=== PATIENT | female | born 1945 | race African-American/Black ===

== ENCOUNTER → 2016-12-31 | Outpatient (CLI) | payer BC ==
[2015-03-19 10:31] VITALS: BP 110/74
[~2016-12-31] MED LIST: ATOR10TA60 PO; HYDR12.58 PO; LEVO750T5 PO
--- NOTE | 2016-12-31 16:04 | RAD ---
DATE: 12/31/2016 EXAM: DIGITAL SCREEN BILAT W/CAD HISTORY: Screening COMPARISON: April 12, 2014 This study was interpreted with the benefit of Computerized Aided Detection (CAD). FINDINGS: Breast Density: SCATTERED The breast parenchyma shows scattered fibroglandular densities. Breast parenchyma level B. There has not been significant change in the appearance of the breasts compared to the previous exam IMPRESSION: Benign findings BI-RADS CATEGORY: 2 BENIGN FINDING(S) RECOMMENDED FOLLOW-UP: 12M 12 MONTH FOLLOW-UP PQRS compliance statement: Patient information was entered into a reminder system with a target due date 12/31/2017 for the next mammogram. Mammography is a sensitive method for finding small breast cancers, but it does not detect them all and is not a substitute for careful clinical examination. A negative mammogram does not negate a clinically suspicious finding and should not result in delay in biopsying a clinically suspicious abnormality. "Our facility is accredited by the [employer] Mammography [employer]."
== END | disposition home or self-care (01) ==
LOC: MAMMO 14:15
PROVIDERS: ATTEND Family Medicine
DX: Z12.31 Encounter for screening mammogram for malignant neoplasm of breast (principal)
CPT/HCPCS: G0202; 77067

== ENCOUNTER → 2018-03-03 | Outpatient (CLI) | payer BC ==
[2015-03-19 10:31] VITALS: BP 110/74
--- NOTE | 2018-03-04 08:53 | RAD ---
DATE: 03/03/2018 EXAM: MAMMO MONTSERRAT SCREENING BILATERAL HISTORY: Screening mammogram. COMPARISON: Previous mammogram from 2017 and 2014. This study was interpreted with the benefit of Computerized Aided Detection (CAD). FINDINGS: Breast Density: SCATTERED The breast parenchyma shows scattered fibroglandular densities. Breast parenchyma level B. The skin and nipples are within normal limits. No suspicious calcifications, spiculated mass or areas of architectural distortion. IMPRESSION: No mammographic evidence of malignancy. Stable mammogram. BI-RADS CATEGORY: 2 BENIGN FINDING(S) RECOMMENDED FOLLOW-UP: 12M 12 MONTH FOLLOW-UP PQRS compliance statement: Patient information was entered into a reminder system with a target due date for the next mammogram. Mammography is a sensitive method for finding small breast cancers, but it does not detect them all and is not a substitute for careful clinical examination. A negative mammogram does not negate a clinically suspicious finding and should not result in delay in biopsying a clinically suspicious abnormality. "Our facility is accredited by the [employer] Mamm[employer]."
== END | disposition home or self-care (01) ==
LOC: MAMMO 15:48
PROVIDERS: ATTEND Family Medicine
DX: Z12.31 Encounter for screening mammogram for malignant neoplasm of breast (principal)
CPT/HCPCS: 77063; 77067

== ENCOUNTER → 2019-03-16 | Outpatient (CLI) | payer OTHER ==
[2015-03-19 10:31] VITALS: BP 110/74
--- NOTE | 2019-03-16 16:51 | RAD ---
DATE: 03/16/2019. EXAM: MAMMO MONTSERRAT SCREENING BILATERAL. HISTORY: Routine mammographic screening. COMPARISON: 03/03/2018. This study was interpreted with the benefit of Computerized Aided Detection (CAD). FINDINGS: Breast Density: SCATTERED The breast parenchyma shows scattered fibroglandular densities. Breast parenchyma level B.. There are no suspicious masses, microcalcifications or architectural distortion. Scattered calcifications are benign. The parenchymal pattern is stable. BI-RADS CATEGORY: 2 BENIGN FINDING(S). RECOMMENDED FOLLOW-UP: 12M 12 MONTH FOLLOW-UP. PQRS compliance statement: Patient information was entered into a reminder system with a target due date 03/16/2020 for the next mammogram. Mammography is a sensitive method for finding small breast cancers, but it does not detect them all and is not a substitute for careful clinical examination. A negative mammogram does not negate a clinically suspicious finding and should not result in delay in biopsying a clinically suspicious abnormality. "Our facility is accredited by the [employer] Mammography [employer]."
== END | disposition home or self-care (01) ==
LOC: MAMMO 14:15
PROVIDERS: ATTEND Family Medicine
DX: Z12.31 Encounter for screening mammogram for malignant neoplasm of breast (principal); N64.89 Other specified disorders of breast
CPT/HCPCS: 77063; 77067

== ENCOUNTER → 2019-09-29 | Outpatient (CLI) | payer BC ==
[2015-03-19 10:31] VITALS: BP 110/74
--- NOTE | 2019-09-29 16:06 | RAD ---
LUMBAR SPINE WO CONTRAST History: Reason: LUMBAR RADICULOPATHY / Spl. Instructions: / History: Technique: Multiplanar, multi sequential MR imaging was performed of the lumbar spine. Comparison: None Findings: Normal vertebral body height and alignment. No fracture. Congenitally small spinal canal. Conus terminates at the normal location. No evidence of nerve root clumping. L1-L2: Small disc bulge. No canal narrowing. Mild facet arthropathy. No neuroforaminal narrowing. L2-L3: Broad-based disc bulge. Moderate facet arthropathy. Subarticular recess narrowing. No canal narrowing. Mild neuroforaminal narrowing. L3-L4: Broad-based disc bulge. Moderate facet arthropathy. Moderate to severe canal narrowing. Severe subarticular recess narrowing with nerve root compression. Mild bilateral neuroforaminal narrowing. L4-L5: Broad-based disc bulge. Severe canal narrowing. Severe subarticular recess narrowing with nerve root compression. Advanced facet arthropathy. Ligamentum flavum thickening. Mild bilateral neuroforaminal narrowing. L5-S1: Disc bulge. Advanced facet arthropathy. Moderate canal narrowing. Subarticular recess narrowing. No neuroforaminal narrowing. Impression: 1. 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 2. Severe L4-L5 and moderate to severe L3-L4 canal and subarticular recess narrowing with nerve root compression. 3. Moderate L5-S1 canal narrowing. Electronically signed by: Andrei Vargas DO (09/29/2019 4:03 PM) [id number]
== END | disposition home or self-care (01) ==
LOC: MRI 13:59
PROVIDERS: ATTEND Family Medicine
DX: M47.26 Other spondylosis with radiculopathy, lumbar region (principal); M47.816 Spondylosis without myelopathy or radiculopathy, lumbar region; M48.07 Spinal stenosis, lumbosacral region; M51.17 Intervertebral disc disorders with radiculopathy, lumbosacral region
CPT/HCPCS: 72148

== ENCOUNTER → 2020-12-09 | Outpatient (CLI) | payer BC ==
[2015-03-19 10:31] VITALS: BP 110/74
--- NOTE | 2020-12-09 16:34 | RAD ---
MG BILAT SCREEN+MONTSERRAT 12/09/2020 3:20 PM INDICATION: Asymptomatic screening mammogram. COMPARISON: 03/16/2019, 03/03/2018 TECHNIQUE: 3D tomosynthesis was performed in CC and MLO projections. 2D views were obtained from the 3D data. CAD was utilized as needed. FINDINGS: Breast density: Category B: There are scattered areas of fibroglandular density. Right breast: There are no suspicious microcalcifications, masses or areas of architectural distortio n. Left breast: There are no suspicious microcalcifications, masses or areas of architectural distortion . Bilateral mammogram is compared to prior examinations appears unchanged. IMPRESSION: Negative bilateral mammogram. BI-RADS category: 1; Negative Recommendations: Recommend annual screening mammography in one year. Electronically signed by: Basia Lawrence MD (12/09/2020 4:31 PM) [id number]
== END ==
LOC: MAMMO 15:21
PROVIDERS: ATTEND Family Medicine
DX: Z12.31 Encounter for screening mammogram for malignant neoplasm of breast (principal)
CPT/HCPCS: 77063; 77067